=== PATIENT | female | born 1985 | race Caucasian/White ===

== ENCOUNTER 2024-06-15 20:56 | Emergency (ER) | payer MEDICAID ==
[~2024-06-15] VITALS: Ht 152.4 cm; Wt 121.4 kg
[2024-06-15 21:01] VITALS: BP 130/87; PULSE 107; RESP 17; TEMP 97.8; O2SAT 97
== END 2024-06-16 00:34 | disposition left against medical advice (07) ==
LOC: ER 20:58
DX: M25.571 Pain in right ankle and joints of right foot (principal); Z88.8 Allergy status to other drugs, medicaments and biological substances; Z88.2 Allergy status to sulfonamides; Z53.21 Procedure and treatment not carried out due to patient leaving prior to being seen by health care provider